=== PATIENT | male | born 1985 | race Caucasian/White ===

== ENCOUNTER 2018-06-20 09:55 | Outpatient (CLI) | payer OTHER | END 2018-06-20 09:56 | disposition home or self-care (01) | LOC: LAB 09:55 | DX: R10.9 Unspecified abdominal pain (principal); E03.8 Other specified hypothyroidism; E78.2 Mixed hyperlipidemia; E03.0 Congenital hypothyroidism with diffuse goiter; N39.0 Urinary tract infection, site not specified ==

== ENCOUNTER 2018-06-22 13:59 | Outpatient (CLI) | payer OTHER | END 2018-06-22 14:06 | disposition home or self-care (01) | LOC: SONOGRAMA 13:59 | DX: R10.2 Pelvic and perineal pain (principal) ==

== ENCOUNTER 2018-08-21 18:05 | Emergency (ER) | payer OTHER ==
[~2018-08-21] VITALS: Ht 185.4 cm; Wt 86.2 kg
== END 2018-08-21 20:00 | disposition home or self-care (01) ==
LOC: ER 18:05
DX: S90.31XA Contusion of right foot, initial encounter (principal); W22.8XXA Striking against or struck by other objects, initial encounter; Y93.89 Activity, other specified; Y92.89 Other specified places as the place of occurrence of the external cause; Y99.8 Other external cause status